=== PATIENT | female | born 1985 ===

== ENCOUNTER 2017-10-20 18:41 | Emergency (ER) | payer OTHER ==
[2017-10-20 18:50] VITALS: BP 101/63; RESP 18; TEMP 98.8; O2SAT 100
[2017-10-20 19:40] LABS: BASO # 0.1 K/uL (0.0-0.2); BASO % 0.5 % (0.0-2.0); EOS % 0.3 % (0.0-4.0); HEMOGLOBIN 12.5 g/dL (12.0-16.0); LYMPH # 2.7 K/uL (1.0-4.3); LYMPH % 26.4 % (20.0-40.0); MEAN CELL VOLUME 96.2 fl (81.0-99.0); MEAN CORPUSCULAR HEMOGLOBIN 33.1 pg (27.0-31.0); MEAN CORPUSCULAR HGB CONC 34.4 g/dL (33.0-37.0); MONO # 0.5 K/uL (0.0-0.8); MONO % 4.8 % (0.0-10.0); NEUT # 7.1 K/uL (1.8-7.0); NRBC % 0.1 % (0.0-0.0); RBC 3.77 Mil/uL (3.80-5.20); RED CELL DISTRIBUTION WIDTH 13.7 % (11.5-14.5); WHITE BLOOD COUNT 10.4 K/uL (4.8-10.8)
[2017-10-20 19:44] LABS: BLOOD UREA NITROGEN 15 mg/dl (7-17); CALCIUM 9.5 mg/dL (8.4-10.2); GFR AFRICAN-AMERICAN > 60; GFR NON-AFRICAN AMERICAN > 60
--- NOTE | 2017-10-20 19:51 | ED PDOC ---
Syncope/Near Syncope/Dizziness Time Seen by Provider: 10/20/17 19:08 Chief Complaint (Nursing): Syncope Chief Complaint (Provider): Syncope Additional Complaint(s): Lilly Boateng is a 32 y/o female with no significant past medical history who presents to the ED complaining of x1 syncopal episode with witness. Patient reports she was shopping and walking around, then after several minutes of standing in the check out line she felt a west of warmth and heat waves along with dizziness, cloudiness, blurry vision and subsequently passed out. She was witnessed by customers. She reports that she didn't hit her head and that she recovered immediately but she fell on her right side and she has a little bit of right sided pain. She states she is 14 weeks and is . She denies any chest pain, SOB, abdominal pain, vaginal bleeding, or urinary problems. She had an ultrasound last week that revealed a normal . [employer]: Dr. Crawley PMD: None provided Past Medical History Reviewed: Historical Data, Nursing Documentation, Vital Signs Vital Signs: Last Vital Signs Temp 98.8 F 10/20/17 18:47 Pulse 86 10/20/17 18:47 Resp 18 10/20/17 18:47 BP 101/63 10/20/17 18:47 Pulse Ox 100 10/20/17 18:47 - Medical History PMH: No Chronic Diseases - Surgical History Surgical History: No Surg Hx - Family History Family History: States: Unknown Family Hx - Allergies Allergies/Adverse Reactions: Allergies Allergy/AdvReac Type Severity Reaction Status Date / Time No Known Allergies Allergy Verified 10/20/17 18:50 Review of Systems ROS Statement: Except As Marked, All Systems Reviewed And Found Negative Constitutional: Positive for: Other (warmth). Negative for: Fever Eyes: Positive for: Vision Change (blurry vision) Cardiovascular: Negative for: Chest Pain Respiratory: Negative for: Shortness of Breath Gastrointestinal: Negative for: Abdominal Pain Genitourinary Female: Negative for: Dysuria, Frequency, Incontinence, Vaginal Bleeding Neurological: Positive for: Dizziness, Other (syncope) Physical Exam - Reviewed Nursing Documentation Reviewed: Yes Vital Signs Reviewed: Yes - Physical Exam Appears: Positive for: Non-toxic, No Acute Distress Head Exam: Positive for: ATRAUMATIC, NORMOCEPHALIC Skin: Positive for: Normal Color, Warm, Dry Eye Exam: Positive for: EOMI, Normal appearance, PERRL Neck: Positive for: Normal, Painless ROM, Supple Cardiovascular/Chest: Positive for: Regular Rate, Rhythm. Negative for: Murmur Respiratory: Positive for: Normal Breath Sounds. Negative for: Respiratory Distress Gastrointestinal/Abdominal: Positive for: Normal Exam, Soft. Negative for: Tenderness Back: Positive for: Normal Inspection. Negative for: L CVA Tenderness, R CVA Tenderness, Vertebral Tenderness (midline tenderness) Extremity: Positive for: Normal ROM. Negative for: Pedal Edema, Deformity Neurologic/Psych: Positive for: Alert, Oriented. Negative for: Motor/Sensory Deficits - Laboratory Results Result Diagrams: 10/20/17 19:31 10/20/17 19:31 - ECG ECG: Positive for: Interpreted By Me, Viewed By Me ECG Rhythm: Positive for: Normal QRS, Normal ST Segment, Sinus Rhythm Rate: 87 O2 Sat by Pulse Oximetry: 100 (RA) Pulse Ox Interpretation: Normal - Progress Re-evaluation Time: 23:11 Condition: Re-examined, Improved Medical Decision Making Medical Decision Making: Time: 19:21 Initial Impression: Syncope Differential diagnosis including but not limited to cardiac arrhythmia, vasovagal syncope, orthostatic hypotension due to , additionally other complications of second trimester. Initial Plan: --EKG --BMP --Troponin I --ED urine --ED urine dipstick --CBC with differential --Glucose POC --US OB limited US Abdomen Limited: FINDINGS: Fetus: Single live intrauterine gestation. No gross anomaly is appreciated. Gestational age: Estimated gestational age of 14 weeks 3 days by measurements. KARENA: 04/17/2018 by ultrasound. EFW: 90 g. Position: Variable. Heart rate: heart rate of 133 beats per minute. Placenta: Posterior. No placenta previa or abruption. Amniotic fluid: Normal. Cervix: No cervical dilatation or effacement. Adnexa: Ovaries not visualized. Free fluid: No significant free fluid. IMPRESSION: 1. Single live intrauterine gestation. Scribe Attestation: Documented by Tyler Skinner, acting as a scribe for Darien Alexis MD. Provider Scribe Attestation: All medical record entries made by the Scribe were at my direction and personally dictated by me. I have reviewed the chart and agree that the record accurately reflects my personal performance of the history, physical exam, medical decision making, and the department course for this patient. I have also personally directed, reviewed, and agree with the discharge instructions and disposition. Disposition - Clinical Impression Clinical Impression: Syncope, - Patient ED Disposition Is Patient to be Admitted: No Doctor Will See Patient In The: Office Counseled Patient/Family Regarding: Studies Performed, Diagnosis, Need For Followup - Disposition Referrals: Teresa Crawley MD [Staff Provider] - Disposition: Routine/Home Disposition Time: 23:12 Condition: GOOD Additional Instructions: Take your vitamins as instructed. Drink plenty of fluids. Follow up with your PCP in 2-3 days. Instructions: Syncope (Fainting), - The Fourth Month
[2017-10-20] MEDS ORDERED: Sodium Chloride 0.9% 1,000 ML IV STA (20:22)
[2017-10-20 21:37] VITALS: PULSE 87
[2017-10-20] MEDS ORDERED: Potassium Chloride 20 mEq ER Tab PO ONE (22:02)
--- NOTE | 2017-10-21 10:07 | US ---
PROCEDURE: ultrasound HISTORY: abdominal pain injury COMPARISON: None available. TECHNIQUE: Standard protocol for this study/examination. FINDINGS: Transverse presentation. Posterior Placenta. No evidence of abruption or previa Gestational age derived from LMP 13 weeks 6 days. KARENA 04/21/2018. Gestational age derived from the following biometric parameters 14 weeks 3 days. KARENA 04/17/2018 Biparietal diameter 2.71 cm Head circumference 10.02 cm Abdominal circumference 7.52 cm Femur length 1.37 cm Estimated weight 89.75 g Calculated cardiac rate 134 beats per min. Closed cervix measuring 8.9 cm IMPRESSION: For 2 weeks 3 days live intrauterine gestation. Gestational concordance documented. Concordant results (preliminary interpretation) provided by [facility]. Procedure Completed: 22:23 Preliminary ([facility]) Report: Dictated and Authenticated: 22:49 Final Interpretation: 10:05 October 21, 2017.
--- NOTE | 2017-10-21 18:07 | CARD ---
APPROVED REPORT EKG Measurement Heart [id number] NM [id number] <Conclusion> Normal sinus rhythm Possible Left atrial enlargement Incomplete RBBB Borderline ECG
== END 2017-10-20 23:32 | disposition home or self-care (01) ==
LOC: H.ER 18:41
DX: R55 Syncope and collapse (principal); O26.91 Pregnancy related conditions, unspecified, first trimester; Z3A.14 14 weeks gestation of pregnancy
CPT/HCPCS: 76815; 80048; 81025; 82948; 84484; 85025; 93005; 96360; 99284; J7030